=== PATIENT | male | born 1990 | race Caucasian/White ===

== ENCOUNTER → 2023-09-20 09:28 | Outpatient (BNVA) | payer OTHER, SELFPAY | DX: Z76.89 Persons encountering health services in other specified circumstances (principal); M25.521 Pain in right elbow; M25.531 Pain in right wrist | CPT/HCPCS: 73080; 73110; 80053; 85025 ==

== ENCOUNTER 2023-12-07 11:16 | Outpatient (CLI) | payer OTHER, SELFPAY ==
--- NOTE | 2023-12-07 11:24 | XRR_ITS ---
PROCEDURE INFORMATION: Exam: XR Left Forearm Exam date and time: 12/07/2023 11:26 AM Age: 33 years old Clinical indication: Pain; Lower or forearm; Left; Additional info: Lt elbow/forearm pain after twisting injury x 2 weeks ago TECHNIQUE: Imaging protocol: Radiologic exam of the left forearm. Views: 2 views. COMPARISON: No relevant prior studies available. FINDINGS: Bones/joints: Normal. Soft tissues: Normal. XR/XR forearm LT 2V [id number] IMPRESSION: No acute findings.
== END 2023-12-07 11:17 | disposition home or self-care (01) ==
PROVIDERS: Visit Provider Emergency Medicine
DX: M79.639 Pain in unspecified forearm (principal); X50.1XXA Overexertion from prolonged static or awkward postures, initial encounter
CPT/HCPCS: 73090

== ENCOUNTER 2023-12-09 16:44 | Emergency (ER) | payer OTHER, SELFPAY ==
[2023-12-09 17:07] VITALS: BP 152/84; PULSE 65; RESP 16; TEMP 36.8; O2SAT 96; BMI 34.2
--- NOTE | 2023-12-09 18:37 | XRR_ITS ---
PROCEDURE INFORMATION: Exam: XR Left Elbow Exam date and time: 12/09/2023 6:43 PM Age: 33 years old Clinical indication: Other: Twisted lt arm; Additional info: Pain/worse swelling TECHNIQUE: Imaging protocol: Radiologic exam of the left elbow. Views: 3 or more views. COMPARISON: CR XR forearm LT 2V [id number] 12/07/2023 11:26 AM FINDINGS: Bones/joints: Normal. Soft tissues: Normal. XR/XR elbow LT min 3V* [id number] IMPRESSION: No acute findings.
--- NOTE | 2023-12-09 18:37 | XRR_ITS ---
PROCEDURE INFORMATION: Exam: XR Left Wrist Exam date and time: 12/09/2023 6:44 PM Age: 33 years old Clinical indication: Other: Twisted lt arm; Additional info: Pain/worsening of swelling TECHNIQUE: Imaging protocol: Radiologic exam of the left wrist. Views: 3 or more views. COMPARISON: CR XR forearm LT 2V [id number] 12/07/2023 11:26 AM FINDINGS: Bones/joints: Normal. Soft tissues: Normal. XR/XR wrist LT min 3V* [id number] IMPRESSION: No acute findings.
--- NOTE | 2023-12-09 18:39 | W.ED.EXTPRO ---
HPI - Extremity Problem General: Chief complaint: Extremity Injury, Upper Stated complaint: Left arm pain Time Seen by Provider: 12/09/23 18:22 Source: patient Mode of arrival: ambulatory Limitations: no limitations History of Present Illness: Patient is a 33-year-old male present to the emergency department complaining of left elbow and forearm pain onset 1 and half weeks ago. He states that during that time he caught a pole awkwardly while at work, it caused him a hypersupination injury of the left arm and it has steadily worsened in pain and swelling since. He did have an x-ray done a few days ago at urgent care, it was negative at that time but he states since then it has gotten much worse. He was prescribed ibuprofen and tramadol states this has not done much. States that he has continued to lift heavy at work despite being given work note. He denies any new injury. He states with his initial injury he did feel a large pop with the injury, is concerned of a ligament or tendon injury. He is now stating that the pain is radiating down to the left wrist. MD Complaint: extremity pain and extremity swelling Onset (ago): week(s) (1.5) Location: left and upper extremity Radiation: distal Relieving factors: immobilization Exacerbating factors: range of motion Associated symptoms: Deny chest pain, fever(s) or rash Related Data Previous Rx's Medication Instructions Recorded ibuprofen 600 mg tablet 600 mg PO Q8H PRN pain #30 tabs 12/07/23 tramadol 50 mg tablet 50 mg PO Q6H PRN pain 5 days #20 12/07/23 tabs methocarbamol 750 mg tablet 750 mg PO Q8H 5 days #15 tabs 12/09/23 Allergies Allergy/AdvReac Type Severity Reaction Status Date / Time lamotrigine [From Lamictal] Allergy ALGY-Hives Verified 12/09/23 17:15 thiopental Allergy unknown Verified 12/09/23 17:15 Surgical Glue Allergy ALGY-Hives Uncoded 12/09/23 17:15 Review of Systems General: Reports: 10 or more systems reviewed and unremarkable except in HPI and below Const: Denies: fever(s) or chills Card: Denies: chest pain Resp: Denies: dyspnea or productive cough GI: Denies: abdominal pain, nausea, vomiting or diarrhea : Denies: flank pain Musc: Reports: extremity pain, extremity swelling and joint pain (Left elbow and left wrist); Denies: neck pain, back pain, joint swelling, joint redness, joint warmth, limited range of motion or muscle weakness Skin/Breast: Denies: rash Neuro: Denies: headache(s), numbness in extremities or weakness in extremities PFSH ED PFSH: Medical History Hernia of abdominal wall Right elbow pain Encounter to establish care alcohol syndrome Surgical History H/O: vasectomy 2016 H/O hernia repair 2019, 2022. Social History Smoking and tobacco/nicotine status: never used tobacco/nicotine Alcohol intake: current Substance/Drug Use: never Adopted: Yes service: No Current occupational exposures/hazards: Yes Physical Exam Const: COMMON NORMALS: no acute distress, patient oriented x3, no limitations, healthy appearing, alert and well nourished HENMT: COMMON NORMALS: normocephalic and atraumatic HEAD & SCALP: normocephalic and atraumatic Neck/C-Spine: COMMON NORMALS: full ROM, supple and no meningeal signs Resp: COMMON NORMALS: normal respiratory effort, No use of accessory muscles and clear to auscultation bilaterally AUSCULTATION: clear to auscultation bilaterally Cardio: COMMON NORMALS: regular rate and regular rhythm RATE: regular rate RHYTHM: regular rhythm Extremity: COMMON NORMALS: normal to inspection, capillary refill normal, no joint enlargement and no clubbing, cyanosis or edema NARRATIVE EXTREMITY EXAM: There is pain with range of motion of the left elbow, it is worse with extension. Also has pain with extension of the left wrist. No obvious deformity, tenderness to palpation to the mid left forearm. No bruising. Distal neurovascular status intact. Radial pulse present. Neuro: COMMON NORMALS: patient oriented x3, moves all extremities, no focal motor deficits and no sensory deficits noted SENSORIUM/ORIENTATION: Yes alert MENINGEAL SIGNS: Yes no meningeal signs Skin: COMMON NORMALS: no rashes or lesions noted GENERAL SKIN EXAM: no rashes or lesions noted Course Vital Signs: Vital signs: Vital Signs Temperature 98.2 F 12/09/23 17:07 Pulse Rate 65 12/09/23 17:07 Respiratory Rate 16 12/09/23 17:07 Blood Pressure 152/84 12/09/23 17:07 Pulse Oximetry 96 12/09/23 17:07 Oxygen Delivery Me thod Room Air 12/09/23 17:07 MDM - Extremity (Nontraumatic) Medical Decision Making Patient had an injury 1 and half weeks ago of the left arm, had preliminary x-rays a few days ago that were negative. States the pain and the swelling had gotten worse so repeat the images today that were also negative. Given muscle relaxer shot with a steroid shot and Toradol shot, he will be sent home with prescription for muscle relaxers and referred to orthopedics for potential MRI. Work note given, stated that he had been continuing to lift despite the pain and I do believe this made it worse. Likely this is just a strain, but will be referred just in case. Lab Data Radiology Impressions Elbow X-Ray 12/09/23 18:37 IMPRESSION: No acute findings. Wrist X-Ray 12/09/23 18:37 IMPRESSION: No acute findings. All radiology interpretation(s) finalized by discharge Discharge Plan Discharge Patient Disposition: Home Clinical Impression: Muscle strain of left forearm Qualifiers: Encounter type: initial encounter Qualified Code(s): S56.912A - Strain of unspecified muscles, fascia and tendons at forearm level, left arm, initial encounter Condition: Stable Prescriptions: New methocarbamol 750 mg tablet 750 mg PO Q8H 5 Days Qty: 15 0RF No Action tramadol 50 mg tablet 50 mg PO Q6H PRN (Reason: pain) 5 Days Qty: 20 0RF ibuprofen 600 mg tablet 600 mg PO Q8H PRN (Reason: pain) Qty: 30 0RF Discharge Orders: Discharge ED (Routine); Ordered 12/09/23 Ordered By: Justyn Thompson Referrals: Barbi Woodard NP [Primary Care Provider] - Patient Instructions: Muscle Strain (ED) Activity Restrictions/Additional Instructions: Muscle relaxers prescribed. Follow-up with orthopedics. Continue taking ibuprofen. Return with any new or worsening. Ice/heat. Avoid heavy lifting. 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
[2023-12-09] MEDS: dexamethasone 10 mg/mL INJ IM (19:12)
[2023-12-09] MEDS: orphenadrine 30 mg/mL Inj 2 mL 60 MG IM (19:14)
[2023-12-09] MEDS: ketorolac 60 mg/2 mL INJ IM (19:14)
[2023-12-09 19:23] VITALS: BP 156/104; PULSE 65; O2SAT 99
--- NOTE | 2023-12-10 07:23 | DCPLANNER ---
Message sent to Ortho for follow up-present to the emergency department complaining of left elbow and forearm pain onset 1 and half weeks ago.
== END 2023-12-09 19:24 | disposition home or self-care (01) ==
PROVIDERS: Emergency Provider Physician Assistant
DX: S56.912A Strain of unspecified muscles, fascia and tendons at forearm level, left arm, initial encounter (principal); X50.1XXA Overexertion from prolonged static or awkward postures, initial encounter
CPT/HCPCS: 73080; 73110; 96372; 99284; J1100; J1885; J2360

== ENCOUNTER → 2024-02-19 13:54 | Outpatient (BNVA) | payer OTHER, SELFPAY | PROVIDERS: Visit Provider Specialist | DX: M79.622 Pain in left upper arm (principal) | CPT/HCPCS: 73090 ==

== ENCOUNTER 2024-03-02 14:25 | Outpatient (CLI) | payer OTHER, SELFPAY | END 2024-03-02 14:26 | disposition home or self-care (01) | LOC: RAD 14:25 | PROVIDERS: Visit Provider Specialist | DX: Z20.828 Contact with and (suspected) exposure to other viral communicable diseases (principal) | CPT/HCPCS: 87400 ==

== ENCOUNTER 2024-03-11 09:24 | Outpatient (CLI) | payer MEDICARE, SELFPAY ==
--- NOTE | 2024-03-11 09:30 | MR_ITS ---
WS: [id number] MRI LEFT FOREARM WITH AND WITHOUT CONTRAST. COMPARISON: Radiograph 12/09/2023 Multiplanar, multisequence imaging is performed with and without contrast. MultiHance 18 mL. No marrow edema or fracture identified. There are no enhancing masses. There is a small amount of flu id adjacent to the proximal supinator muscle. Not visualized is the biceps tendon attachment to the r adial tuberosity or the brachioradialis tendon. This may be due to the thick slice imaging through th e entire forearm. No well-formed fluid collections. Remaining muscle bellies are normal. Postcontrast imaging is negati ve for mass or fluid collection. No abscess. MR/MR forearm LT wo/w con [id number] IMPRESSION: 1. Small amount of edema associated with the supinator muscle at the elbow. 2. No enhancing masses. No fractures. 3. This study is not adequate to evaluate the biceps or brachial radialis tend ons. For pathology at the elbow consider dedicated RIGHT elbow MRI. This will a lso better evaluate the edema in the supinator muscle for possible etiology.
[2024-03-11] MEDS: gadobenate dimeglumine 20 mL vial 18 ML IV (10:29)
== END 2024-03-11 09:25 | disposition home or self-care (01) ==
LOC: RAD 09:28
PROVIDERS: Visit Provider Specialist
DX: S46.912A Strain of unspecified muscle, fascia and tendon at shoulder and upper arm level, left arm, initial encounter (principal); X58.XXXA Exposure to other specified factors, initial encounter
CPT/HCPCS: 73220

== ENCOUNTER 2024-05-07 07:03 | Outpatient (CLI) | payer MEDICARE, SELFPAY ==
--- NOTE | 2024-05-07 07:15 | MR_ITS ---
WS: [id number] MRI LEFT ELBOW WITHOUT CONTRAST. COMPARISON: LEFT forearm MRI 03/11/2024 Multiplanar, multisequence imaging is performed without contrast. No joint effusion. No olecranon bursitis. Distal triceps tendon is normal. No fractures or marrow edema. No significant amount of residual edema within the supraspinatus muscle. The biceps tendon extends to the radial tuberosity. Brachialis tendon normal attachment at the ulna. The brachioradialis muscle as visualized and tendon are normal. No radial or ulnar collateral ligament tears are identified. There is a central tear in the proximal common extensor tendon. No full-thickness tear. MR/MR elbow LT wo con* [id number] IMPRESSION: 1. No fracture or marrow edema. 2. No persistent supraspinatus muscle edema. 3. Biceps tendon, brachialis tendon and brachioradialis tendons are normal. No tears. 4. Partial tear of the proximal common extensor tendon. Ulnar collateral ligam ent is intact. 5. No joint effusion. No olecranon bursitis.
== END 2024-05-07 07:04 | disposition home or self-care (01) ==
PROVIDERS: Visit Provider Specialist
DX: S56.512A Strain of other extensor muscle, fascia and tendon at forearm level, left arm, initial encounter (principal); X58.XXXA Exposure to other specified factors, initial encounter
CPT/HCPCS: 73221

== ENCOUNTER 2024-12-10 09:31 | Outpatient (CLI) | payer MEDICARE, SELFPAY ==
--- NOTE | 2024-12-10 09:42 | XR_ITS ---
WS: [id number] Exam: XR hand RT min 3V* [id number] Date/Time of Exam: 12/10/2024 9:45 AM Reason For Exam: right hand pain DLP: No acute fracture. The joints are preserved. Normal soft tissues. XR/XR hand RT min 3V* [id number] IMPRESSION: 1. Negative RIGHT hand.
--- NOTE | 2024-12-10 09:42 | XR_ITS ---
WS: [id number] Exam: XR cervical spine 3V* [id number] Date/Time of Exam: 12/10/2024 9:45 AM Reason For Exam: fall, neck pain DLP: No acute fracture. Disc spaces are preserved. Posterior elements are normal in appearance. Normal dens. Normal paraspinal soft tissues. XR/XR cervical spine 3V* [id number] IMPRESSION: 1. Negative C-spine study.
== END 2024-12-10 09:32 | disposition home or self-care (01) ==
DX: M54.2 Cervicalgia (principal); M79.641 Pain in right hand; T14.90XA Injury, unspecified, initial encounter; W19.XXXA Unspecified fall, initial encounter
CPT/HCPCS: 72040; 73130